=== PATIENT | female | born 1985 | race Caucasian/White ===

== ENCOUNTER 2017-12-23 20:51 | Emergency (ER) | payer BC, OTHER ==
[2017-12-23 21:13] VITALS: BP 135/95
--- NOTE | 2017-12-23 22:03 | EDM.PDOC ---
ED HPI GENERAL MEDICAL PROBLEM - General Chief Complaint: Lower Extremity Injury/Pain Stated Complaint: knee injury Time Seen by Provider: 12/23/17 21:04 Source of Information: Reports: Patient, Family History Limitations: Reports: No Limitations - History of Present Illness INITIAL COMMENTS - FREE TEXT/NARRATIVE: Patient presents with acute onset of left knee pain. She was playing volleyball tonight about 8:30 when she went up to get a ball and came down and rolled her ankle causing a fall and injury to her left knee. It sounded like it had a medial stress mechanism. He wrapped it and placed ice and there is some swelling now. She did twist her ankle somewhat although it is only minimally tender. No hip pain and right lower extremity is uninjured. No history of any major knee injuries in the past. Patient denies Left Knee Pain Score (Numeric/FACES): 6 - Related Data Allergies Allergy/AdvReac Type Severity Reaction Status Date / Time No Known Allergies Allergy Verified 01/04/15 20:08 Home Meds: Home Meds Acetaminophen/HYDROcodone [[place] 325-5 MG] 1 - 2 tab PO Q4H PRN #10 tablet 12/23 [Rx] Past Medical History - Past Health History Medical/Surgical History: Denies Medical/Surgical History - Past Surgical History HEENT Surgical History: Reports: Oral Surgery Social & Family History - Tobacco Use Smoking Status *Q: Never Smoker - Caffeine Use Caffeine Use: Reports: Coffee, Energy Drinks, Soda, Tea - Recreational Drug Use Recreational Drug Use: No Review of Systems - Review of Systems Review Of Systems: See Below Constitutional: Reports: No Symptoms Respiratory: Reports: Shortness of Breath Musculoskeletal: Reports: Joint Pain, Joint Swelling, Other (Patient has some swelling in the medial and lateral compartments already. She has exquisite tenderness anteriorly to the knee. Hard to get a good exam secondary to the pain at present. No pulses including dorsalis pedis and posterior tibial pulses are normal. Ankle otherwise is with some mild tenderness over the ATF ligament, no stress laxity noted.) Neurological: Denies: Numbness, Tingling ED EXAM, GENERAL - Physical Exam Exam: See Below General Appearance: Alert, WD/WN Extremities: Normal Capillary Refill, Joint Swelling, Leg Pain, Limited Range of Motion, Other (Tenderness noted anterior knee, tenderness noted especially in the medial lateral compartment swelling. Some mild effusion noted already. Exam is documented in the review of systems as well.) Skin Exam: Warm, Dry Course - Vital Signs Last Recorded V/S: Last Vital Signs Temp 98.8 F 12/23/17 21:11 Pulse 85 12/23/17 21:11 Resp 20 12/23/17 21:11 BP 135/95 H 12/23/17 21:11 Pulse Ox 100 12/23/17 21:11 - Orders/Labs/Meds Orders: Active Orders 24 hr Category Date Time Status Communication Order [RC] STAT Care 12/23/17 22:31 Ordered Knee Min 4V Lt [CR] Stat Exams 12/23/17 21:28 Taken - Radiology Interpretation Free Text/Narrative:: 4 view x-rays of the left knee reveal what looks like a possible tibial plateau fracture. There is some soft tissue swelling. There is no obvious dislocation otherwise noted. - Re-Assessments/Exams Free Text/Narrative Re-Assessment/Exam: 12/23/17 22:29 difficult to get a good knee exam secondary to the swelling and tenderness. She does seem to have some mild laxity as best I can test on the medial side for medial collateral injury or to otherwise get a good Lackman's test although she does feel that she has looseness in her knee. She had an MRI of her knee back in 2004 and did not require any surgical intervention at that point. Reviewed at present that a CT may be beneficial to delineate tibial plateau fracture although there does not look like a lot of depression if in fact outward case and an MRI of the knee would be an overall better test to look for both bony and ligamentous/cartilaginous injury. Place patient in the immobilizer crutches nonweightbearing rest ice elevate and anti-inflammatories for pain, see we can schedule has outpatient for an MRI. Departure - Departure Time of Disposition: 22:37 Disposition: Home, Self-Care 01 Clinical Impression: Fracture of tibia, Derangement of knee Tibial plateau fracture, left Qualifiers: Encounter type: initial encounter Fracture type: closed Qualified Code(s): S82.142A - Displaced bicondylar fracture of left tibia, initial encounter for closed fracture - Discharge Information Prescriptions: Acetaminophen/HYDROcodone [[place] 325-5 MG] 1 - 2 tab PO Q4H PRN #10 tablet PRN Reason: Pain Referrals: PCP,None [Primary Care Provider] - Forms: ED Department Discharge Additional Instructions: Follow-up with Tova at the outpatient clinic for results and further referral for orthopedic evaluation. Rest, ice, elevate, nonweightbearing, crutches, return for increasing pain, swelling, worse - My Orders Last 24 Hours: My Active Orders 12/23/17 21:28 Knee Min 4V Lt [CR] Stat 12/23/17 22:31 Communication Order [RC] STAT - Assessment/Plan Last 24 Hours: My Active Orders 12/23/17 21:28 Knee Min 4V Lt [CR] Stat 12/23/17 22:31 Communication Order [RC] STAT
--- NOTE | 2017-12-24 08:51 | CR ---
Left knee: Four views of the left knee were obtained. Comparison: No previous knee exam. Fracture appears to be present at the base of the tibial spines. Mild medial joint space narrowing is seen. Lateral joint space is preserved. Small joint effusion is seen. Impression: 1. Fracture at the base of the tibial spines. 2. Other findings as noted above. Diagnostic code #3
== END 2017-12-23 23:10 | disposition home or self-care (01) ==
LOC: JD.ED 20:51
DX: S82.142A Displaced bicondylar fracture of left tibia, initial encounter for closed fracture (principal); X50.9XXA Other and unspecified overexertion or strenuous movements or postures, initial encounter; Y93.68 Activity, volleyball (beach) (court)
CPT/HCPCS: 73564-26-LT; 73564-LT; 99283; 99284